=== PATIENT | female | born 1960 ===

== ENCOUNTER 2017-05-11 17:15 | Emergency (ER) | payer MEDICAID ==
[2017-05-11 17:34] VITALS: O2SAT 97
--- NOTE | 2017-05-11 20:42 | C.PDOC ---
Time Seen by Provider: 05/11/17 19:21 Chief Complaint (Nursing): Finger,Hand,&Wrist Past Medical History Vital Signs: Last Vital Signs Temp 98.2 F 05/11/17 17:31 Pulse 84 05/11/17 17:31 Resp 20 05/11/17 17:31 BP 113/66 05/11/17 17:31 Pulse Ox 97 05/11/17 17:31 - Medical History PMH: HTN - [facility] Procedures COLONOSCOPY (01/18/14) - Social History Hx Alcohol Use: No Hx Substance Use: No ED Course And Treatment O2 Sat by Pulse Oximetry: 97 Disposition - Disposition Referrals: Masood Eastman MD [Staff Provider] - Disposition: HOME/ ROUTINE Disposition Time: 20:39 Condition: GOOD Additional Instructions: Follow up with the medical doctor within 1- 2 days without fail. return if worsened Prescriptions: Ibuprofen [Motrin] 600 mg PO TID #21 tab Instructions: Jammed Finger (ED) Forms: [employer] (German), Work Excuse - Clinical Impression Clinical Impression: Finger sprain
--- NOTE | 2017-05-11 20:45 | C.PDOC ---
History Of Present Illness 56 y/o female presents to the ED c/o pain in the right fifth finger x3 days. The patient hit her right fifth finger 2-3 days ago against the wall. The patient notes swelling since the incident. The patient notes the pain radiates up the right arm which prompted the visit. The patient denies numbness and weakness. Time Seen by Provider: 05/11/17 19:21 Chief Complaint (Nursing): Finger,Hand,&Wrist History Per: Patient History/Exam Limitations: no limitations Onset/Duration Of Symptoms: Days Current Symptoms Are (Timing): Still Present Severity: Mild Past Medical History Reviewed: Historical Data, Nursing Documentation, Vital Signs Vital Signs: Last Vital Signs Temp 97.6 F 05/11/17 20:47 Pulse 72 05/11/17 20:47 Resp 16 05/11/17 20:47 BP 111/65 05/11/17 20:47 Pulse Ox 97 05/11/17 20:58 - Medical History PMH: HTN Surgical History: No Surg Hx - [facility] Procedures COLONOSCOPY (01/18/14) Family History: States: No Known Family Hx - Social History Hx Alcohol Use: No Hx Substance Use: No Review Of Systems Constitutional: Negative for: Fever, Weakness Musculoskeletal: Positive for: Other (right fifth finger pain and swelling ) Skin: Negative for: Bruising Neurological: Negative for: Weakness, Numbness Physical Exam - Physical Exam Appears: Non-toxic, No Acute Distress Skin: Warm, Dry Head: Atraumatic, Normacephalic Oral Mucosa: Moist Extremity: Normal ROM, Capillary Refill (<2sec.), Other (swelling and tenderness of the PIP joint of right fifth finger ) Pulses: Left Radial: Normal, Right Radial: Normal Neurological/Psych: Oriented x3, Normal Motor, Normal Sensation ED Course And Treatment O2 Sat by Pulse Oximetry: 97 (RA) Pulse Ox Interpretation: Normal Progress Note: The patient was administered Tylenol 325mg. The patient received a hand X-ray and the exam came back negative for fracture and dislocation. The patient is advised to have a follow up with PMD for further evaluation. Medical Decision Making Medical Decision Making: Xray of the finger was negative. Finger splint was applied by LYUBOV Castellon. Disposition - Disposition Referrals: Masood Eastman MD [Staff Provider] - Disposition: HOME/ ROUTINE Disposition Time: 20:30 Condition: GOOD Additional Instructions: Follow up with the medical doctor within 1- 2 days without fail. return if worsened Prescriptions: Ibuprofen [Motrin] 600 mg PO TID #21 tab Instructions: Jammed Finger (ED) Forms: [facility] (Citizen Of [place]), Work Excuse - Clinical Impression Clinical Impression: Finger sprain - PA / CLAMP OPERATOR / Resident Statement MD/DO has reviewed & agrees with the documentation as recorded. MD/DO has examined the patient and agrees with the treatment plan. - Scribe Statement Jerri Welsh All medical record entries made by the Scribe were at my direction and personally dictated by me. I have reviewed the chart and agree that the record accurately reflects my personal performance of the history, physical exam, medical decision making, and the department course for this patient. I have also personally directed, reviewed, and agree with the discharge instructions and disposition.
[2017-05-11 20:48] VITALS: BP 111/65; PULSE 72; RESP 16; TEMP 97.6
--- NOTE | 2017-05-12 12:38 | RAD ---
PROCEDURE: Right small finger radiographs. HISTORY: pain and swelling to 5th finger COMPARISON: None. TECHNIQUE: AP radiograph of the right hand, as well as spot oblique and lateral images of small finger were obtained. FINDINGS: RIGHT SMALL FINGER: Normal right small finger, without fracture or focal lesion. Remainder of the right hand (as seen on the AP view) grossly unremarkable. JOINTS: Normal. SOFT TISSUES: Soft tissue swelling seen. OTHER FINDINGS: None. IMPRESSION: No evidence of acute fracture or dislocation. No evidence of radiopaque foreign body. Soft tissue swelling.
== END 2017-05-11 20:48 | disposition home or self-care (01) ==
LOC: C.ER 17:15
DX: S63.616A Unspecified sprain of right little finger, initial encounter (principal); W22.8XXA Striking against or struck by other objects, initial encounter